=== PATIENT | male | born 2000 | race Caucasian/White ===

== ENCOUNTER 2022-05-01 12:03 | Emergency (ER) | payer OTHER ==
[2022-05-01] MEDS ORDERED: Ondansetron PF 4 MG/2 ML Vial ONE (12:47)
[2022-05-01] MEDS ORDERED: Morphine 4 MG/ML VIAL ONE (12:47)
== END 2022-05-01 14:04 | disposition home or self-care (01) ==
LOC: ERS 12:03
DX: S42.022A Displaced fracture of shaft of left clavicle, initial encounter for closed fracture (principal); S80.212A Abrasion, left knee, initial encounter; V23.49XA Other motorcycle driver injured in collision with car, pick-up truck or van in traffic accident, initial encounter
CPT/HCPCS: 96374; 96375; J2270; J2405